=== PATIENT | male | born 1950 | race Caucasian/White ===

== ENCOUNTER 2021-08-13 10:01 | Inpatient (IN) ==
[2021-08-13 10:13] VITALS: BMI 26.2
--- NOTE | 2021-08-13 10:34 | DR.GENAD ---
HPI Time Seen Time Seen by Provider: 08/13/21 10:32 PCP Primary Care Physician: LEANA MAK HPI Comment HPI Comment: cough, congestion, body aches, pains and sob x 2 days as below; worsening; he had rt lung cancer removed on a few years ago Complaint/Symptoms Chief Complaint:: PT. C/O FEVER, GENERALIZED WEAKNESS, CHILLS AND SHORTNESS OF BREATH X 2 DAYS. COVID-19 Coronavirus risk:travel/contact w/high risk person: No Has patient experienced Coronavirus symptoms: Yes Coronavirus symptoms experienced: Fever and Shortness of Breath Source History Provided: Patient Mode of Arrival Mode of Arrival: Ambulatory Timing Onset of Chief Complaint: 08/11/21 PMH PMH Past Medical History: Yes Past Medical History: COPD Past Medical History Comment: NEUROPATHY, LUNG CANCER, SKIN CANCER Past Surgical History: Yes Surgical History: Other Past Surgical History Comment: PART OF RIGHT LUNG REMOVED, NASAL SURGERY DUE TO SKIN CANCER, SKIN GRAFT TO RIGHT SHOULDER Family History History of Family Medical Conditions: No Social History Does patient currently use any type of tobacco product: No Have you used tobacco products in the last 12 months: No Type of Tobacco Use: None Does any household member use tobacco: No Alcohol Use: DAILY Do you use any recreational Drugs:: No Lives With: Spouse Lives Where: Home Travel Risk Coronavirus risk:travel/contact w/high risk person: No Has patient experienced Coronavirus symptoms: Yes Coronavirus symptoms experienced: Fever and Shortness of Breath Infectious screening In the last 2 months have you had wt loss of >10#?: NO Have you had fever, night sweats or hemotysis?: No Have you traveled outside the country in the last 6 months?: No Isolation: Droplet ROS Review of Systems Eyes: No Symptoms Reported ENTM: No Symptoms Reported Cardiovascular: No Symptoms Reported Gastrointestinal/Abdominal: No Symptoms Reported Genitourinary: No Symptoms Reported Neurological: No Symptoms Reported Integumentary: No Symptoms Reported Hematologic/Lymphatic: No Symptoms Reported Endocrine: No Symptoms Reported Psychiatric: No Symptoms Reported PE Vital Signs Vitals: Temperature 97.6 F Pulse Rate [Left Brachial] 70 Pulse Rate 88 Respiratory Rate 17 Blood Pressure [Left Arm] 155/78 Blood Pressure 119/70 O2 Sat by Pulse Oximetry 98 General General Appearance: Other (looks mildly ill) Head Head Exam: Normal Inspection Eyes Eye exam: Normal Appearance ENT ENT Exam: Normal Exam External Ear Exam: Normal External Inspection TM/Canal Exam: Bilateral: Normal Nose Exam: Normal Nose Exam Mouth Exam: Normal Inspection Throat Exam: Normal Inspection Neck Neck Exam: Normal Inspection Chest Chest Inspection: Normal Inspection Respiratory Respiratory Exam: Normal Lung Sounds Bilat Respiratory Exam: Bilateral: Clear to Auscultation Cardiovascular Cardiovascular Exam: Regular Rate and Normal Rhythm Abdominal Exam Abdominal Exam: Normal Inspection, Normal Bowel Sounds and Soft Extremities Extremities Exam: Normal Inspection Back Back Exam: Normal Inspection Neurologic Neurological Exam: Alert and Oriented X3 Psychiatric Psychiatric Exam: Normal Affect and Normal Mood Skin Skin Exam: Warm, Dry, Intact and Normal Color MDM Differential Diagnosis Differential Diagnosis: covid vs pneumonia vs bronchitis vs flu vs PE COURSE Reevaluation 1st: Unchanged Consultation Call Returned: 13:53 (Dr Garcia accepts admission.) ROR Labs Reviewed Laboratory Results Reviewed?: Yes Result Diagrams: 08/13/21 11:19 08/13/21 11:19 Laboratory: WBC 2.6 X10^3/uL (3.6-10.0) L 08/13/21 11:19 RBC 5.39 X10^6/uL (4.7-6.0) 08/13/21 11:19 Hgb 15.9 g/dL (13.5-18.0) 08/13/21 11:19 Hct 46.0 % (42.0-54.0) 08/13/21 11:19 MCV 85.3 fL (80.0-100.0) 08/13/21 11:19 MCH 29.6 pg (27.0-34.0) 08/13/21 11:19 MCHC 34.6 g/dL (33.0-35.0) 08/13/21 11:19 RDW 14.4 % (11.6-16.5) 08/13/21 11:19 Plt Count 121 X10^3/uL (150.0-450.0) L 08/13/21 11:19 MPV 7.8 fL (7.4-11.0) 08/13/21 11:19 Neut % (Auto) 74.7 % (42.0-75.0) 08/13/21 11:19 Lymph % (Auto) 11.0 % (21.0-51.0) L 08/13/21 11:19 Mora % (Auto) 13.5 % (0.0-13.0) H 08/13/21 11:19 Eos % (Auto) 0.2 % (0.9-2.9) L 08/13/21 11:19 Baso % (Auto) 0.6 % (0.2-1.0) 08/13/21 11:19 Neut # (Auto) 2.0 x10^3/uL (2.2-4.8) L 08/13/21 11:19 Lymph # (Auto) 0.3 X10^3/uL (1.3-2.9) L 08/13/21 11:19 [place]a # (Auto) 0.4 x10^3/uL (0.3-0.8) 08/13/21 11:19 Eos # (Auto) 0.0 x10^3/uL (0.0-0.2) 08/13/21 11:19 Baso # (Auto) 0.0 X10^3/uL (0.0-0.1) 08/13/21 11:19 Absolute Nucleated RBC 0.2 /100WBC 08/13/21 11:19 PT 14.3 SECONDS (11.8-14.3) 08/13/21 11:10 INR Target Range - 08/13/21 11:10 INR 1.17 (0.8-1.3) 08/13/21 11:10 APTT 34.0 SECONDS (22.9-36.5) 08/13/21 11:10 PTT Comment - 08/13/21 11:10 D-Dimer 5.89 ug/ml (0.0-0.57) H* 08/13/21 11:19 Sample Site Rr 08/13/21 11:10 ABG pH 7.430 (7.35-7.45) 08/13/21 11:10 ABG pCO2 38.0 mmHg (35.0-45.0) 08/13/21 11:10 ABG pO2 72.0 mmHg (80.0-100.0) L 08/13/21 11:10 ABG HCO3 25.2 mmol/L (22-26) 08/13/21 11:10 ABG O2 Saturation 95.0 % (90-100) 08/13/21 11:10 ABG Base Excess 1.0 mmol/L (-2.0-2.0) 08/13/21 11:10 Ernie Test Pos 08/13/21 11:10 A-a Gradient 30.0 mmHg 08/13/21 11:10 FiO2 21.0 08/13/21 11:10 Blood Gas Comments Pt camron well cdn 08/13/21 11:10 Sodium 136 mmol/L (136-145) 08/13/21 11:19 Corrected Sodium TNP 08/13/21 11:19 Potassium 3.6 mmol/L (3.5-5.1) 08/13/21 11:19 Chloride 100 mmol/L (98-107) 08/13/21 11:19 Carbon Dioxide 25.1 mmol/L (21-32) 08/13/21 11:19 BUN 14 mg/dL (7-18) 08/13/21 11:19 Creatinine 1.13 mg/dL (0.70-1.30) 08/13/21 11:19 Est GFR (MDRD) Af Amer > 60 (>60) 08/13/21 11:19 Est GFR (MDRD) Non-Af > 60 (>60) 08/13/21 11:19 Glucose 107 mg/dL (65-99) H 08/13/21 11:19 Calcium 9.0 mg/dL (8.5-10.1) 08/13/21 11:19 Corrected Calcium TNP 08/13/21 11:19 Total Bilirubin 0.70 mg/dL (0.2-1.0) 08/13/21 11:19 AST 67 Units/L (15-37) H 08/13/21 11:19 ALT 48 Units/L (12-78) 08/13/21 11:19 Alkaline Phosphatase 49 Units/L (46-116) 08/13/21 11:19 Total Protein 7.5 g/dL (6.4-8.2) 08/13/21 11:19 Albumin 3.5 g/dL (3.4-5.0) 08/13/21 11:19 Globulin 4.0 g/dL (2.5-4.5) 08/13/21 11:19 Albumin/Globulin Ratio 0.9 Ratio (1.1-2.1) L 08/13/21 11:19 Influenza Type A Ag Negative-presumptive (NEGATIVE) 08/13/21 10:31 Influenza Type B Ag Negative-presumptive (NEGATIVE) 08/13/21 10:31 SARS CoV-2 RNA Rapid AMOS Negative (NEGATIVE) 08/13/21 10:31 XRAY XRAY Interpreted by: Radiologist X-ray Results: cta: Focal filling defect at the level of the segmental right lower lobe medial pulmonary artery, suspicious for acute PE, at the level of the surgical changes and partial lobectomy, the distal vessel appears occluded. Patchy bibasal atelectasis. Mild mediastinal adenopathy. Opioid Opioid Risk Tool Age (Severiano box if 16-45): No History of Preadolescent Sexual Abuse: No Total: 0 Total Score Risk Category: Low Risk Copyright: [facility] predicting aberrant behaviors Diagnosis Discharge Problem: S/P lobectomy of lung, History of lung cancer Pulmonary embolism Qualifiers: Pulmonary embolism type: unspecified Chronicity: acute Acute cor pulmonale presence: unspecified Qualified Code(s): I26.99 - Other pulmonary embolism without acute cor pulmonale Leukopenia Qualifiers: Leukopenia type: lymphocytopenia Qualified Code(s): D72.810 - Lymphocytopenia Instructions Forms: Precautions for COVID19 [facility] Social Distancing
[2021-08-13 11:17] LABS: ABG ALLEN TEST POS; ABG HCO3 25.2 mmol/L (22-26)
[2021-08-13 11:25] LABS: BASOPHILS % (AUTO) 0.6 % (0.2-1.0); EOSINOPHILS % (AUTO) 0.2 % (0.9-2.9); HEMOGLOBIN 15.9 g/dL (13.5-18.0); LYMPHOCYTES # (AUTO) 0.3 X10^3/uL (1.3-2.9); MEAN CORPUSCULAR HEMOGLOBIN 29.6 pg (27.0-34.0); MEAN CORPUSCULAR HGB CONC 34.6 g/dL (33.0-35.0); MEAN CORPUSCULAR VOLUME 85.3 fL (80.0-100.0); MEAN PLATELET VOLUME 7.8 fL (7.4-11.0); MONOCYTES # (AUTO) 0.4 x10^3/uL (0.3-0.8); MONOCYTES % (AUTO) 13.5 % (0.0-13.0); NEUTROPHILS % (AUTO) 74.7 % (42.0-75.0); PLATELET COUNT 121 X10^3/uL (150.0-450.0); RED BLOOD COUNT 5.39 X10^6/uL (4.7-6.0); RED CELL DISTRIBUTION WIDTH 14.4 % (11.6-16.5); WHITE BLOOD COUNT 2.6 X10^3/uL (3.6-10.0)
[2021-08-13 11:37] LABS: ALANINE AMINOTRANSFERASE 48 Units/L (12-78); ALBUMIN 3.5 g/dL (3.4-5.0); ALKALINE PHOSPHATASE 49 Units/L (46-116); ASPARTATE AMINO TRANSFERASE 67 Units/L (15-37); BLOOD UREA NITROGEN 14 mg/dL (7-18); CARBON DIOXIDE 25.1 mmol/L (21-32); CHLORIDE 100 mmol/L (98-107); CREATININE 1.13 mg/dL (0.70-1.30); SODIUM 136 mmol/L (136-145); TOTAL PROTEIN 7.5 g/dL (6.4-8.2); eGFR NON BLACK RACES > 60 (>60)
[2021-08-13] MEDS ORDERED: NS 100 ML IV 100 ML ONE (12:22)
--- NOTE | 2021-08-13 12:56 | RAD ---
HISTORYCough SOB lung CA right lobectomySTUDYAP chestCOMPARISONNoneFINDINGSThe heart is not enlarged. There is moderate dilatation of thoracic aorta. Nonspecific interstitial increase is noted in the left lower lung without evidence for consolidation, mass, hilar enlargement or pleural effusion.IMPRESSIONMild nonspecific interstitial prominence in the left base may represent chronic fibrosis or a more acute inflammatory process. There is no prior exam currently available for direct comparison.Electronically signed by: LUCA TORRES (Aug 13, 2021 12:54:23)
--- NOTE | 2021-08-13 13:22 | CT ---
HISTORYELEVATED D DIMER history of lung carcinoma and right lobectomySTUDYCTA CHESTCOMPARISONNone availableTECHNIQUEAxial images through the chest was performed after the administration of contrast. 3D MIPS images were performed. CT scan was performed following ALARA (As low as Reasonably Achievable).Coronal and Sagittal reformatted images were performed.FINDINGSThe thyroid gland is unremarkable. there is no evidence of axillary adenopathy. The ascending aorta measures 3.6 centimeters,there is no pleural or pericardial effusion. No adrenal masses, the spleen is no enlarged, there is no gallstones t,here is diffuse fatty liver,the pancreas is unremarkable.There is a small irregular filling defect in the segmental right lower lobe medial segment vessel adjacent to an area of surgical clips,the distal vessel is occluded at the level, suspicious for acute PThere is a partial right lower lobe lobectomy at the level.No other filling defects are seen. No axillary adenopathy. There is a pretracheal lymph node measuring in short axis 1.3 centimeters, there is also pretracheal lymph nodes measuring 1 centimeter.Lung windows there is no evidence of focal pneumonia. There is mild emphysema in the periphery, there is atelectasis in the bases, status post partial lobectomy in the right lower lobe. No focal nodulesBone windows no evidence of aggressive bone lesions. No acute fracturesIMPRESSIONFocal filling defect at the level of the segmental right lower lobe medial pulmonary artery, suspicious for acute PE, at the level of the surgical changes and partial lobectomy, the distal vessel appears occludedPatchy bibasal atelectasis. Mild mediastinal adenopathy.Electronically signed by: Natalie King (Aug 13, 2021 13:20:05)
[2021-08-13] MEDS ORDERED: HEPARIN SODIUM INJ 5000 UNITS ONE (14:07)
[2021-08-13] MEDS ORDERED: HEPARIN SODIUM IN D5W 25,000 UNITS/500 ML BAG ONE (14:07)
[2021-08-13] MEDS: HEPARIN SODIUM IN D5W 25,000 UNITS/500 ML BAG IV PRN (14:32)
[2021-08-13] MEDS: NS 1,000 ML IV 1,000 ML IV SCH (16:26)
[2021-08-13] MEDS: ROCEPHIN VIAL 1 GRAM 1 G in NS 100 ML IV + SPIKE MINIBAG* 100 ML IV SCH (16:26)
[2021-08-13] MEDS ORDERED: PROVENTIL NEB TX 0.083% 2.5MG/ 3ML NEB PRN (17:21)
[2021-08-13] MEDS: TYLENOL 325 MG TAB PO PRN (23:35)
[2021-08-14] MEDS: NS 1,000 ML IV 1,000 ML IV SCH ×2 (05:48→18:42)
[2021-08-14 05:53] LABS: BASOPHILS % (AUTO) 1.1 % (0.2-1.0); HEMATOCRIT 43.6 % (42.0-54.0); HEMOGLOBIN 14.7 g/dL (13.5-18.0); LYMPHOCYTES # (AUTO) 0.4 X10^3/uL (1.3-2.9); LYMPHOCYTES % (AUTO) 17.4 % (21.0-51.0); MEAN CORPUSCULAR HEMOGLOBIN 29.3 pg (27.0-34.0); MEAN CORPUSCULAR HGB CONC 33.8 g/dL (33.0-35.0); MEAN CORPUSCULAR VOLUME 86.6 fL (80.0-100.0); MEAN PLATELET VOLUME 8.4 fL (7.4-11.0); MONOCYTES # (AUTO) 0.3 x10^3/uL (0.3-0.8); MONOCYTES % (AUTO) 16.2 % (0.0-13.0); NEUTROPHILS # (AUTO) 1.3 x10^3/uL (2.2-4.8); NEUTROPHILS % (AUTO) 64.3 % (42.0-75.0); PLATELET COUNT 107 X10^3/uL (150.0-450.0); RED BLOOD COUNT 5.03 X10^6/uL (4.7-6.0); RED CELL DISTRIBUTION WIDTH 14.6 % (11.6-16.5); WHITE BLOOD COUNT 2.1 X10^3/uL (3.6-10.0)
[2021-08-14 06:03] LABS: ALANINE AMINOTRANSFERASE 42 Units/L (12-78); ALBUMIN 2.8 g/dL (3.4-5.0); ALKALINE PHOSPHATASE 53 Units/L (46-116); ASPARTATE AMINO TRANSFERASE 59 Units/L (15-37); BLOOD UREA NITROGEN 14 mg/dL (7-18); CALCIUM 8.3 mg/dL (8.5-10.1); CHLORIDE 103 mmol/L (98-107); COR CA(FOR HYPOALB) 9.3 mg/dL (8.5-10.1); COR NA(FOR HYPERGLY) 139 mmol/L (136-145); SODIUM 138 mmol/L (136-145); TOTAL PROTEIN 6.4 g/dL (6.4-8.2); eGFR NON BLACK RACES > 60 (>60)
[2021-08-14] MEDS ORDERED: MYLICON TAB 80 MG CHEW PO ONE (06:46)
--- NOTE | 2021-08-14 07:01 | RAD ---
HISTORYLung CA, lobectomy, SOBSTUDYPortable AP [id number]/2021FINDINGSThere is noted interval increase in linear/subsegmental atelectasis left lower lung. No airspace consolidation, pleural fluid or pneumothorax seen. Heart size is similar.IMPRESSIONNo significant change except for increasing linear atelectasis in the left lower lung. Focal consolidation to suggest pneumonia is not identified.Electronically signed by: LUCA TORRES (Aug 14, 2021 06:59:45)
[2021-08-14 07:30] LABS: BAND NEUTROPHILS % 8 % (0-10); BASOPHILS % (MANUAL) 2 % (0-1)
[2021-08-14 07:31] LABS: PLATELET MORPHOLOGY COMMENT NORMAL (NORMAL)
[2021-08-14] MEDS ORDERED: POTASSIUM CHLORIDE LIQ 20 MEQ UDC PO PRN (07:36)
[2021-08-14] MEDS ORDERED: K-RIDER 10 MEQ/NS 100 ML 10 MEQ/100 ML BAG IV PRN (07:36)
[2021-08-14] MEDS ORDERED: K-DUR TAB 20 MEQ PO PRN (07:36)
[2021-08-14] MEDS ORDERED: POTASSIUM CHL 40 MEQ/NS 0.45% 500 ML IV PRN (07:36)
[2021-08-14] MEDS ORDERED: KLOR-CON PO PRN (07:36)
[2021-08-14] MEDS ORDERED: MICRO K EXTEN CAP 10 MEQ PO PRN (07:36)
[2021-08-14] MEDS ORDERED: POTASSIUM CHL 60 MEQ/NS 0.45% 500 ML IV PRN (07:36)
[2021-08-14] MEDS ORDERED: MAGNESIUM SULFATE 1 GRAM/100 mL PREMIX 1 G/100 ML BAG IV PRN (07:36)
--- NOTE | 2021-08-14 07:53 | DR.H&P ---
H&P - History & Physical for Day of: H&P Date: 08/13/21 - Chief Complaint Chief Complaint: SOB, COUGH, CONGESTION, BODY ACHES, FEVER - History of Present Illness History of Present Illness: IS A 70 YEAR OLD PATIENT OF [facility]. HE PRESENTED TO THE ER WITH COMPLAINTS OF COUGH, CONGESTION, BODY ACHES, AND SHORTNESS OF BREATH X 2 DAYS. HE REPORTS THAT SYMPOTMS HAVE PROGRESSIVELY WORSENED OVER THE PAST TWO DAYS. HE HAS A HX OF RIGHT LUNG CANCER, WHICH WAS REMOVED A FEW YEARS AGO. PMH INCLUDES COPD, NEUROPATHY, LUNG CA, SKIN CA, PARTIAL LOBECTOMY, SKIN GRAFT TO RIGHT SHOULDER, NASAL SURGERY. EXAMINATION REVEALED DIMINISHED LUNG SOUNDS THROUGHOUT. ON ARRIVAL, VITALS WERE: 97.6-88-20-97%-119/70. LABS WERE OBTAINED. ABNORMAL LAB VALUES INCLUDE THE FOLLOWING: WBC 2.6, PLT COUNT 121, D-DIMER 5.89, GLUCOSE 107, AST 67. COVID AND INFLUENZA NEGATIVE. BLOOD CULTURES WERE SET UP. A CHEST XRAY WAS OBTAINED AND REVEALED: Mild nonspecific interstitial prominence in the left base may represent chronic fibrosis or a more acute inflammatory process. There is no prior exam currently available for direct comparison. A CHEST CTA WAS OBTAINED AND REVEALED: Focal filling defect at the level of the segmental right lower lobe medial pulmonary artery, suspicious for acute PE, at the level of the surgical changes and partial lobectomy, the distal vessel appears occluded Patchy bibasal atelectasis. Mild mediastinal adenopathy. IN THE ER, HE WAS STARTED ON A HEPARIN DRIP. HE WAS ADMITTED FOR FURTHER EVALUATION AND TREATMENT OF RLL PULMONARY EMBOLISM, HYPOXIA, AND COUGH. HE WAS STARTED ON NORMAL SALINE AT 80 ML/HR, HEPARIN DRIP, ROCEPHIN 1G IV DAILY, ALBUTEROL NEB TX, AND THE POTASSIUM AND MAGNESIUM PROTOCOLS. OTHERWISE, WE PLAN TO FOLLOW UP WITH AM LABS AND CHEST XRAY AND CONTINUE TO MONITOR. TIME SPENT ON CLINICAL ASSESSMENT, REVIEWING LABS AND IMAGING, DECISION MAKING, AND DOCUMENTATION GREATER THAN 75 MINUTES. - Past Medical History Past Medical History: COPD Additional Medical History: NEUROPATHY - Past Surgical History Surgical History: Other Additional Surgical History: PARTIAL RIGHT LOBECTOMY, NASAL SURGERY, SKIN GRAFT RIGHT SHOULDER - Family History Family Medical History: Diabetes Mellitus, Cancer, [place], Hypertension - Social History Does patient currently use any type of tobacco product: Yes Have you used tobacco products in the last 12 months: Yes Type of Tobacco Use: Smokeless Does any household member use tobacco: No Alcohol Use: DAILY Drug Use: None - Medications Home Medications: erythromycin base Allergy (Verified 08/13/21 10:13) oxycodone [From Percocet] Allergy (Verified 08/13/21 10:13) Penicillins Allergy (Verified 08/13/21 10:13) terazosin Allergy (Verified 08/13/21 10:13) CONTINUE taking the following medications aspirin 325 mg PO DAILY 08/13/21 [History] cetirizine 10 mg PO DAILY 08/13/21 [History] cyanocobalamin (vitamin B-12) 100 mcg PO DAILY 08/13/21 [History] folic acid 2 mg PO DAILY 08/13/21 [History] gabapentin [Neurontin] 300 mg PO DAILY 08/13/21 [History] montelukast 10 mg PO DAILY 08/13/21 [History] pantoprazole 40 mg PO DAILY 08/13/21 [History] pyridoxine [id number] 3 natty PO DAILY 08/13/21 [History] thiamine HCl (vitamin B1) 100 mg PO DAILY 08/13/21 [History] - Review of Systems Constitutional: Fever, Weakness, Malaise Eyes: No Symptoms Reported ENT: No Symptoms Reported Respiratory: No Symptoms Reported, Cough, Shortness of Breath, SOB with Excertion Cardiovascular: No Symptoms Reported Gastrointestinal: No Symptoms Reported Genitourinary: No Symptoms Reported Musculoskeletal: No Symptoms Reported Skin: No Symptoms Reported Neurological: Weakness - Physical Exam Vital Signs: Temperature 98.0 F Pulse Rate [Left Brachial] 72 Pulse Rate 66 Respiratory Rate 10 Blood Pressure [Left Arm] 158/82 Blood Pressure 130/66 O2 Sat by Pulse Oximetry 96 Oriented: Normal Eyes: Normal Ear: Normal Nose: Normal Throat: Normal Respiratory: Diminished Throughout Cardiovascular: Normal : Normal Auscultation: Bowel Sounds: Normal Palpation: Normal Tenderness: Normal Skin: Normal Musculoskeletal: Normal Psychiatric: Normal Mood Description: Calm Affect: Normal Speech Pattern: Clear - Assessment/Plan (1) Pulmonary embolism Qualifiers: Pulmonary embolism type: unspecified Chronicity: acute Acute cor pulmonale presence: unspecified Qualified Code(s): I26.99 - Other pulmonary embolism without acute cor pulmonale Status: Acute Plan: ADMIT, SUPPLEMENTAL OXYGEN, NORMAL SALINE AT 80 ML/HR, HEPARIN DRIP, ROCEPHIN 1G IV DAILY, ALBUTEROL NEB TX, AND THE POTASSIUM AND MAGNESIUM PROTOCOLS. (2) Bronchopneumonia Status: Acute (3) Hypoxia Status: Acute (4) Leukopenia Qualifiers: Leukopenia type: lymphocytopenia Qualified Code(s): D72.810 - Ly mphocytopenia Status: Acute - Allergies Allergies/Adverse Reactions: Allergies Allergy/AdvReac Type Severity Reaction Status Date / Time erythromycin base Allergy Verified 08/13/21 10:13 oxycodone [From Percocet] Allergy Verified 08/13/21 10:13 Penicillins Allergy Verified 08/13/21 10:13 terazosin Allergy Verified 08/13/21 10:13
[2021-08-14] MEDS: TYLENOL 325 MG TAB PO PRN ×2 (09:33→19:27)
[2021-08-14] MEDS: ROCEPHIN VIAL 1 GRAM 1 G in NS 100 ML IV + SPIKE MINIBAG* 100 ML IV SCH (09:44)
[2021-08-14] MEDS: HEPARIN SODIUM IN D5W 25,000 UNITS/500 ML BAG IV PRN (09:44)
[2021-08-14] MEDS ORDERED: DEMEROL INJ ONE (11:50)
[2021-08-14] MEDS: DEMEROL INJ IVP PRN ×2 (11:51→18:42)
[2021-08-15] MEDS: DEMEROL INJ IVP PRN ×4 (00:34→20:06)
[2021-08-15] MEDS: TYLENOL 325 MG TAB PO PRN ×4 (05:00→22:10)
[2021-08-15 05:34] LABS: BASOPHILS % (AUTO) 1.4 % (0.2-1.0); EOSINOPHILS % (AUTO) 0.6 % (0.9-2.9); LYMPHOCYTES # (AUTO) 0.5 X10^3/uL (1.3-2.9); LYMPHOCYTES % (AUTO) 22.2 % (21.0-51.0); MEAN CORPUSCULAR HEMOGLOBIN 29.2 pg (27.0-34.0); MEAN CORPUSCULAR VOLUME 85.7 fL (80.0-100.0); MEAN PLATELET VOLUME 8.5 fL (7.4-11.0); MONOCYTES # (AUTO) 0.3 x10^3/uL (0.3-0.8); NEUTROPHILS # (AUTO) 1.4 x10^3/uL (2.2-4.8); NEUTROPHILS % (AUTO) 63.8 % (42.0-75.0); PLATELET COUNT 98 X10^3/uL (150.0-450.0); RED BLOOD COUNT 4.79 X10^6/uL (4.7-6.0); RED CELL DISTRIBUTION WIDTH 14.2 % (11.6-16.5); WHITE BLOOD COUNT 2.2 X10^3/uL (3.6-10.0)
[2021-08-15 05:44] LABS: ALANINE AMINOTRANSFERASE 43 Units/L (12-78); ALBUMIN 2.8 g/dL (3.4-5.0); ALKALINE PHOSPHATASE 46 Units/L (46-116); ASPARTATE AMINO TRANSFERASE 57 Units/L (15-37); BLOOD UREA NITROGEN 9 mg/dL (7-18); CALCIUM 8.3 mg/dL (8.5-10.1); CARBON DIOXIDE 27.6 mmol/L (21-32); CHLORIDE 102 mmol/L (98-107); COR CA(FOR HYPOALB) 9.3 mg/dL (8.5-10.1); CREATININE 0.98 mg/dL (0.70-1.30); SODIUM 137 mmol/L (136-145); TOTAL PROTEIN 6.3 g/dL (6.4-8.2); eGFR NON BLACK RACES > 60 (>60)
[2021-08-15] MEDS: NS 1,000 ML IV 1,000 ML IV SCH ×2 (06:02→20:06)
[2021-08-15 06:08] LABS: BAND NEUTROPHILS % 10 % (0-10); PLATELET MORPHOLOGY COMMENT NORMAL (NORMAL)
--- NOTE | 2021-08-15 07:15 | RAD ---
HISTORYShortness of breath, pulmonary embolusSTUDYChest AP [id number]/21/2021FINDINGSHeart size is normal. Abbie are normal. Aorta is calcified. There is some subsegmental atelectasis in the left lung base unchanged. No definite acute alveolar infiltrates or pleural effusions are identified. Bony thorax is unremarkable.IMPRESSIONNo definite acute infiltratesSubsegmental atelectasis left lung base unchangedElectronically signed by: TULIO MANDEL (Aug 15, 2021 07:13:21)
[2021-08-15] MEDS: FORTAZ or TAZICEF VIAL INJ 1 G in NS 100 ML IV + SPIKE MINIBAG* 100 ML IV SCH ×3 (09:35→21:13)
--- NOTE | 2021-08-15 09:55 | PCM.PROG ---
Progress Note - Progress Note for Day of Date of Exam: 08/15/21 - Subjective Subjective: WAS ADMITTED FOR TREATMENT OF PULMONARY EMBOLISM, PNEUMONIA, HYPOXIA, AND LEUKOPENIA. TODAY, HE IS ALERT AND ORIENTED, SITTING UP IN BED ON MORNING ROUNDS. HE CONTINUES WITH COMPLAINTS OF SHORTNESS OF BREATH AND COUGH. HE ALSO REPORTS GENERALIZED WEAKNESS. STAFF REPORTS THAT HE DID HAVE TEMP OF 102.1 AT APPROXIMATELY 1900 LAST NIGHT. ON EXAMINATION, HEART IS REGULAR IN RATE AND RHYTHM. BILATERAL LUNGS ARE NOTED WITH DIMINISHED LUNG SOUNDS THROUGHOUT. ABDOMEN IS ROUND, SOFT, AND NON-TENDER WITH NORMAL BOWEL SOUNDS NOTED IN ALL QUADRANTS. HIS VITALS THIS MORNING ARE: 99.3-86-15-96%-138/65. LABS WERE OBTAINED. WBC 2.2, HGB 14/HCT 41, CALCIUM 8.3, AST 57, TOTAL PROTEIN 6.3, ALBUMIN 2.8. BLOOD CULTURES ARE PENDING. A CHEST XRAY WAS OBTAINED AND REVEALED: Heart size is normal. Abbie are normal. Aorta is calcified. There is some subsegmental atelectasis in the left lung base unchanged. No definite acute alveolar infiltrates or pleural effusions are identified. Bony thorax is u nremarkable. HE IS CURRENTLY RECEIVING: NORMAL SALINE AT 80 ML/HR, HEPARIN DRIP, ROCEPHIN 1G IV DAILY, ALBUTEROL NEB TX, AND THE POTASSIUM AND MAGNESIUM PROTOCOLS. TODAY, WE WILL DISCONTINUE THE ROCEPHIN AND ADD FORTAZ AND LEVAQUIN. WE WILL TRANSITION FROM HEPARIN TO ELIQUIS 10MG PO BID. OTHERWISE, WE WILL CONTINUE WITH CURRENT PLAN OF CARE. WE PLAN TO FOLLOW UP WITH AM LABS AND CONTINUE TO MONITOR. TIME SPENT ON CLINICAL ASSESSMENT, REVIEWING LABS AND IMAGING, DECISION MAKING, AND DOCUMENTATION GREATER THAN 45 MINUTES. - Past Medical Family Social History Past Med/Fam/Surg Hx: No changes since H&P Allergies: Allergies erythromycin base Allergy (Verified 08/13/21 10:13) oxycodone [From Percocet] Allergy (Verified 08/13/21 10:13) Penicillins Allergy (Verified 08/13/21 10:13) terazosin Allergy (Verified 08/13/21 10:13) - Review of Systems ROS: No change since H&P - Vital Signs and I&O's Vital Signs: Temperature 99.3 F Pulse Rate [Left Brachial] 72 Pulse Rate 86 Respiratory Rate 20 Blood Pressure [Left Arm] 158/82 Blood Pressure 138/65 O2 Sat by Pulse Oximetry 96 Intake and Output: Intake & Output 08/12/21 08/13/21 08/14/21 08/15/21 11:59 11:59 11:59 11:59 Intake Total 2085 / 2085 3458 / 3458 Output Total 200 / 200 1500 / 1500 Balance 1885 / 1885 - Physical Exam Oriented: Normal Eyes: Normal Ear: Normal Nose: Normal Throat: Normal Respiratory: Generalized, Diminished Cardiovascular: Normal : Normal Auscultation: Bowel Sounds: Normal Palpation: Normal Tenderness: Normal Skin: Normal Musculoskeletal: Normal Psychiatric: Normal Mood Description: Calm Affect: Normal Speech Pattern: Clear, Appropriate - Laboratory and Diagnostics Result Diagrams: 08/15/21 05:08 08/15/21 05:08 Labs: 08/13/21 23:32 Blood Blood Culture - Preliminary 08/13/21 23:28 Blood Blood Culture - Preliminary 08/13/21 15:23 Blood Blood Culture - Preliminary 08/13/21 15:18 Blood Blood Culture - Preliminary Laboratory WBC 2.2 X10^3/uL (3.6-10.0) L 08/15/21 05:08 RBC 4.79 X10^6/uL (4.7-6.0) 08/15/21 05:08 Hgb 14.0 g/dL (13.5-18.0) 08/15/21 05:08 Hct 41.0 % (42.0-54.0) L 08/15/21 05:08 MCV 85.7 fL (80.0-100.0) 08/15/21 05:08 MCH 29.2 pg (27.0-34.0) 08/15/21 05:08 MCHC 34.0 g/dL (33.0-35.0) 08/15/21 05:08 RDW 14.2 % (11.6-16.5) 08/15/21 05:08 Plt Count 98 X10^3/uL (150.0-450.0) L 08/15/21 05:08 Plt Count Comment Decreased (ADEQUATE) 08/15/21 05:08 MPV 8.5 fL (7.4-11.0) 08/15/21 05:08 Neut % (Auto) 63.8 % (42.0-75.0) 08/15/21 05:08 Lymph % (Auto) 22.2 % (21.0-51.0) 08/15/21 05:08 [place] % (Auto) 12.0 % (0.0-13.0) 08/15/21 05:08 Eos % (Auto) 0.6 % (0.9-2.9) L 08/15/21 05:08 Baso % (Auto) 1.4 % (0.2-1.0) H 08/15/21 05:08 Neut # (Auto) 1.4 x10^3/uL (2.2-4.8) L 08/15/21 05:08 Lymph # (Auto) 0.5 X10^3/uL (1.3-2.9) L 08/15/21 05:08 [place] # (Auto) 0.3 x10^3/uL (0.3-0.8) 08/15/21 05:08 Eos # (Auto) 0.0 x10^3/uL (0.0-0.2) 08/15/21 05:08 Baso # (Auto) 0.0 X10^3/uL (0.0-0.1) 08/15/21 05:08 Absolute Nucleated RBC 0.2 /100WBC 08/15/21 05:08 Total Counted 50 08/15/21 05:08 Neutrophils % (Manual) 52 % (39-76) 08/15/21 05:08 Band Neutrophils % 10 % (0-10) 08/15/21 05:08 Lymphocytes % (Manual) 28 % (13-43) 08/15/21 05:08 Monocytes % (Manual) 10 % (4-9) H 08/15/21 05:08 Basophils % (Manual) 2 % (0-1) H 08/14/21 05:27 Plt Morphology Comment Normal (NORMAL) 08/15/21 05:08 RBC Morphology Normal (NORMAL) 08/15/21 05:08 PT 14.3 SECONDS (11.8-14.3) 08/13/21 11:10 INR Target Range - 08/13/21 11:10 INR 1.17 (0.8-1.3) 08/13/21 11:10 APTT 89.4 SECONDS (22.9-36.5) H 08/15/21 05:08 PTT Comment - 08/15/21 05:08 D-Dimer 5.89 ug/ml (0.0-0.57) H* 08/13/21 11:19 Sample Site Rr 08/13/21 11:10 ABG pH 7.430 (7.35-7.45) 08/13/21 11:10 ABG pCO2 38.0 mmHg (35.0-45.0) 08/13/21 11:10 ABG pO2 72.0 mmHg (80.0-100.0) L 08/13/21 11:10 ABG HCO3 25.2 mmol/L (22-26) 08/13/21 11:10 ABG O2 Saturation 95.0 % (90-100) 08/13/21 11:10 ABG Base Excess 1.0 mmol/L (-2.0-2.0) 08/13/21 11:10 Ernie Test Pos 08/13/21 11:10 A-a Gradient 30.0 mmHg 08/13/21 11:10 FiO2 21.0 08/13/21 11:10 Blood Gas Comments Pt camron well cdn 08/13/21 11:10 Sodium 137 mmol/L (136-145) 08/15/21 05:08 Corrected Sodium TNP 08/15/21 05:08 Potassium 4.1 mmol/L (3.5-5.1) 08/15/21 05:08 Chloride 102 mmol/L (98-107) 08/15/21 05:08 Carbon Dioxide 27.6 mmol/L (21-32) 08/15/21 05:08 BUN 9 mg/dL (7-18) 08/15/21 05:08 Creatinine 0.98 mg/dL (0.70-1.30) 08/15/21 05:08 Est GFR (MDRD) Af Amer > 60 (>60) 08/15/21 05:08 Est GFR (MDRD) Non-Af > 60 (>60) 08/15/21 05:08 Glucose 95 mg/dL (65-99) 08/15/21 05:08 Calcium 8.3 mg/dL (8.5-10.1) L 08/15/21 05:08 Corrected Calcium 9.3 mg/dL (8.5-10.1) 08/15/21 05:08 Magnesium 2.3 mg/dL (1.7-2.9) 08/14/21 05:27 Total Bilirubin 0.40 mg/dL (0.2-1.0) 08/15/21 05:08 AST 57 Units/L (15-37) H 08/15/21 05:08 ALT 43 Units/L (12-78) 08/15/21 05:08 Alkaline Phosphatase 46 Units/L (46-116) 08/15/21 05:08 Total Protein 6.3 g/dL (6.4-8.2) L 08/15/21 05:08 Albumin 2.8 g/dL (3.4-5.0) L 08/15/21 05:08 Globulin 3.5 g/dL (2.5-4.5) 08/15/21 05:08 Albumin/Globulin Ratio 0.8 Ratio (1.1-2.1) L 08/15/21 05:08 Influenza Type A Ag Negative-presumptive (NEGATIVE) 08/13/21 10:31 Influenza Type B Ag Negative-presumptive (NEGATIVE) 08/13/21 10:31 SARS CoV-2 RNA Rapid AMOS Negative (NEGATIVE) 08/13/21 10:31 - Plan (1) Pulmonary embolism Status: Acute Qualifiers: Pulmonary embolism type: unspecified Chronicity: acute Acute cor pulmonale presence: unspecified Qualified Code(s): I26.99 - Other pulmonary embolism without acute cor pulmonale Plan: ADMIT, SUPPLEMENTAL OXYGEN, NORMAL SALINE AT 80 ML/HR, ELIQUIS 10MG PO BID, FORTAZ 1G IV Q8H, LEVAQUIN 500MG IV DAILY, ALBUTEROL NEB TX, AND THE POTASSIUM AND MAGNESIUM PROTOCOLS. (2) Bronchopneumonia Status: Acute (3) Hypoxia Status: Acute (4) Leukopenia Status: Acute Qualifiers: Leukopenia type: lymphocytopenia Qualified Code(s): D72.810 - Lymphocytopenia
[2021-08-15] MEDS: ELIQUIS PO SCH ×2 (10:16→20:06)
[2021-08-15] MEDS: LEVAQUIN PREMIX IV 500 MG 500 MG/100 ML BAG IV SCH (10:17)
[2021-08-15] MEDS: ROCEPHIN VIAL 1 GRAM 1 G in NS 100 ML IV + SPIKE MINIBAG* 100 ML IV SCH (19:04)
[2021-08-15] MEDS: COLACE CAP 100 MG PO SCH (21:13)
[2021-08-16] MEDS: NS 1,000 ML IV 1,000 ML IV SCH ×3 (00:57→21:06)
[2021-08-16] MEDS: FORTAZ or TAZICEF VIAL INJ 1 G in NS 100 ML IV + SPIKE MINIBAG* 100 ML IV SCH ×3 (05:11→21:06)
--- NOTE | 2021-08-16 05:27 | RAD ---
PROCEDURE: Chest X-ray 1 View .HISTORY: Dyspnea.TECHNIQUE: AP view .COMPARISON: 08/15/2021.TECHNICAL QUALITY: Satisfactory .FINDINGS:Normal size heart .Mediastinum and hilar regions show no masses or lymphadenopathy. Tortuous aorta.Normal central vascularity .No pulmonary consolidation, masses, pleural fluid, or pneumothorax. Continued discoid atelectasis left base.No acute bony abnormality .IMPRESSION:Unchanged chest x-ray.Electronically signed by: Rao León (Aug 16, 2021 05:25:38)
[2021-08-16 05:28] LABS: BASOPHILS % (AUTO) 0.6 % (0.2-1.0); EOSINOPHILS % (AUTO) 0.1 % (0.9-2.9); HEMATOCRIT 41.5 % (42.0-54.0); HEMOGLOBIN 14.1 g/dL (13.5-18.0); LYMPHOCYTES # (AUTO) 0.7 X10^3/uL (1.3-2.9); LYMPHOCYTES % (AUTO) 19.8 % (21.0-51.0); MEAN CORPUSCULAR HGB CONC 34.1 g/dL (33.0-35.0); MEAN CORPUSCULAR VOLUME 85.1 fL (80.0-100.0); MEAN PLATELET VOLUME 8.2 fL (7.4-11.0); MONOCYTES # (AUTO) 0.4 x10^3/uL (0.3-0.8); MONOCYTES % (AUTO) 10.3 % (0.0-13.0); NEUTROPHILS # (AUTO) 2.5 x10^3/uL (2.2-4.8); NEUTROPHILS % (AUTO) 69.2 % (42.0-75.0); PLATELET COUNT 102 X10^3/uL (150.0-450.0); RED BLOOD COUNT 4.87 X10^6/uL (4.7-6.0); WHITE BLOOD COUNT 3.6 X10^3/uL (3.6-10.0)
[2021-08-16 05:42] LABS: ALANINE AMINOTRANSFERASE 52 Units/L (12-78); ALBUMIN 2.8 g/dL (3.4-5.0); ALKALINE PHOSPHATASE 47 Units/L (46-116); ASPARTATE AMINO TRANSFERASE 77 Units/L (15-37); BLOOD UREA NITROGEN 8 mg/dL (7-18); CALCIUM 8.4 mg/dL (8.5-10.1); CARBON DIOXIDE 25.8 mmol/L (21-32); CHLORIDE 100 mmol/L (98-107); COR CA(FOR HYPOALB) 9.4 mg/dL (8.5-10.1); CREATININE 0.94 mg/dL (0.70-1.30); SODIUM 135 mmol/L (136-145); TOTAL PROTEIN 6.3 g/dL (6.4-8.2); eGFR NON BLACK RACES > 60 (>60)
[2021-08-16 06:21] LABS: BAND NEUTROPHILS % 9 % (0-10); PLATELET MORPHOLOGY COMMENT NORMAL (NORMAL)
[2021-08-16] MEDS: DEMEROL INJ IVP PRN ×3 (06:29→19:46)
[2021-08-16] MEDS ORDERED: LANOXIN INJ ONE (06:43)
[2021-08-16] MEDS ORDERED: LANOXIN INJ IVP ONE (06:45)
[2021-08-16] MEDS ORDERED: CARDIZEM INJ 125 MG VIAL 125 MG in NS 100 ML IV 100 ML IV PRN (07:30)
[2021-08-16] MEDS ORDERED: NS 100 ML IV 100 ML ONE (07:42)
[2021-08-16] MEDS ORDERED: CARDIZEM INJ 125 MG VIAL ONE (07:42)
[2021-08-16] MEDS ORDERED: LANOXIN INJ IVP SCH (09:00)
[2021-08-16] MEDS: LEVAQUIN PREMIX IV 500 MG 500 MG/100 ML BAG IV SCH (09:16)
[2021-08-16] MEDS: ELIQUIS PO SCH ×2 (09:16→21:03)
[2021-08-16 10:20] LABS: BILIRUBIN,URINE NEGATIVE (NEGATIVE); BLOOD/HEMOGLOBIN,URINE NEGATIVE (NEGATIVE); GLUCOSE, URINE NEGATIVE (NEGATIVE); KETONES,URINE NEGATIVE (NEGATIVE); LEUKOCYTE ESTERASE ,URINE NEGATIVE (NEGATIVE); NITRITES,URINE NEGATIVE (NEGATIVE); PROTEIN,URINE NEGATIVE (NEGATIVE); UROBILINOGEN,URINE NORMAL (NORMAL)
[2021-08-16 10:22] LABS: APPEARANCE,URINE CLEAR (CLEAR); COLOR,URINE STRAW (YELLOW)
[2021-08-16] MEDS: TYLENOL 325 MG TAB PO PRN (17:48)
[2021-08-16] MEDS: COLACE CAP 100 MG PO SCH (21:03)
[2021-08-17] MEDS: DEMEROL INJ IVP PRN (02:09)
[2021-08-17] MEDS: TYLENOL 325 MG TAB PO PRN (04:05)
[2021-08-17] MEDS: NS 1,000 ML IV 1,000 ML IV SCH ×2 (05:16→10:32)
[2021-08-17] MEDS: FORTAZ or TAZICEF VIAL INJ 1 G in NS 100 ML IV + SPIKE MINIBAG* 100 ML IV SCH (05:16)
[2021-08-17 05:44] LABS: BASOPHILS % (AUTO) 0.8 % (0.2-1.0); EOSINOPHILS % (AUTO) 0.5 % (0.9-2.9); HEMATOCRIT 39.6 % (42.0-54.0); HEMOGLOBIN 13.5 g/dL (13.5-18.0); LYMPHOCYTES # (AUTO) 0.9 X10^3/uL (1.3-2.9); LYMPHOCYTES % (AUTO) 21.6 % (21.0-51.0); MEAN CORPUSCULAR HEMOGLOBIN 28.8 pg (27.0-34.0); MEAN CORPUSCULAR HGB CONC 34.1 g/dL (33.0-35.0); MEAN CORPUSCULAR VOLUME 84.6 fL (80.0-100.0); MEAN PLATELET VOLUME 8.3 fL (7.4-11.0); MONOCYTES # (AUTO) 0.5 x10^3/uL (0.3-0.8); MONOCYTES % (AUTO) 10.9 % (0.0-13.0); NEUTROPHILS # (AUTO) 2.8 x10^3/uL (2.2-4.8); NEUTROPHILS % (AUTO) 66.2 % (42.0-75.0); PLATELET COUNT 117 X10^3/uL (150.0-450.0); RED BLOOD COUNT 4.68 X10^6/uL (4.7-6.0); RED CELL DISTRIBUTION WIDTH 14.2 % (11.6-16.5); WHITE BLOOD COUNT 4.2 X10^3/uL (3.6-10.0)
--- NOTE | 2021-08-17 05:47 | RAD ---
PROCEDURE: Chest X-ray 1 View .HISTORY: Dyspnea.TECHNIQUE: AP view .COMPARISON: 08/16/2021.TECHNICAL QUALITY: Satisfactory .FINDINGS:Normal size heart .Mediastinum and hilar regions show no masses or lymphadenopathy .Normal central vascularity .No pulmonary consolidation, masses, pleural fluid, or pneumothorax. Unchanged discoid atelectasis left base.No acute bony abnormality .IMPRESSION:Stable chest.Electronically signed by: Rao León (Aug 17, 2021 05:45:42)
[2021-08-17 05:50] LABS: ALANINE AMINOTRANSFERASE 75 Units/L (12-78); ALBUMIN 2.6 g/dL (3.4-5.0); ALKALINE PHOSPHATASE 46 Units/L (46-116); ASPARTATE AMINO TRANSFERASE 104 Units/L (15-37); BLOOD UREA NITROGEN 8 mg/dL (7-18); CALCIUM 8.8 mg/dL (8.5-10.1); CARBON DIOXIDE 25.8 mmol/L (21-32); CHLORIDE 101 mmol/L (98-107); COR CA(FOR HYPOALB) 9.9 mg/dL (8.5-10.1); SODIUM 136 mmol/L (136-145); TOTAL PROTEIN 6.1 g/dL (6.4-8.2); eGFR NON BLACK RACES > 60 (>60)
[2021-08-17 06:01] LABS: BAND NEUTROPHILS % 4 % (0-10); PLATELET MORPHOLOGY COMMENT NORMAL (NORMAL)
--- NOTE | 2021-08-17 08:46 | PCM.PROG ---
Progress Note - Progress Note for Day of Date of Exam: 08/16/21 - Subjective Subjective: WAS ADMITTED FOR TREATMENT OF PULMONARY EMBOLISM, PNEUMONIA, HYPOXIA, AND LEUKOPENIA. TODAY, HE IS ALERT AND ORIENTED, SITTING UP IN BED ON MORNING ROUNDS. HE CONTINUES WITH COMPLAINTS OF SHORTNESS OF BREATH, COUGH, AND GENERALIZED WEAKNESS. HE CONTINUES TO HAVE FEVER AT NIGHT. PATIENT ALSO HAD INCREASED HEART RATE OF UP TO 170 BPM EARLY THIS MORNING. HE WAS GIVEN A DOSE OF DIGOXIN, HOWEVER, HEART RATE CONTINUED TO BE ELEVATED. HE WAS THEN STARTED ON A CARDIZEM DRIP. ON EXAMINATION THIS MORNING, HEART RATE CONTINUES TO BE ELEVATED. FIRST COOK SHOWS A-FIB. BILATERAL LUNGS ARE NOTED WITH DIMINISHED LUNG SOUNDS THROUGHOUT. ABDOMEN IS ROUND, SOFT, AND NON-TENDER WITH NORMAL BOWEL SOUNDS NOTED IN ALL QUADRANTS. HIS VITALS THIS MORNING ARE: 99.3-128-28-96%-124/70. LABS WERE OBTAINED. HCT 21.5, PLT COUNT 102, AST 104, TOTAL PROTEIN 6.1, ALBUMIN 2.6. BLOOD CULTURES ARE PENDING. A CHEST XRAY WAS OBTAINED AND REVEALED: Normal size heart. Mediastinum and hilar regions show no masses or lymphadenopathy. Tortuous aorta. Normal central vascularity. No pulmonary consolidation, masses, pleural fluid, or pneumothorax. Continued discoid atelectasis left base. No acute bony abnormality. HE IS CURRENTLY RECEIVING: NORMAL SALINE AT 80 ML/HR, ELIQUIS 10MG PO BID, CARDIZEM DRIP, FORTAZ 1G IV Q8H, LEVAQUIN 500MG IV DAILY, ALBUTEROL NEB TX, AND THE POTASSIUM AND MAGNESIUM PROTOCOLS. WE WILL CONTINUE WITH CURRENT PLAN OF CARE TODAY. OTHERWISE, WE PLAN TO FOLLOW UP WITH AM LABS AND CONTINUE TO MONITOR. TIME SPENT ON CLINICAL ASSESSMENT, REVIEWING LABS AND IMAGING, DECISION MAKING, AND DOCUMENTATION GREATER THAN 45 MINUTES. - Past Medical Family Social History Past Med/Fam/Surg Hx: No changes since H&P Allergies: Allergies erythromycin base Allergy (Verified 08/13/21 10:13) oxycodone [From Percocet] Allergy (Verified 08/13/21 10:13) Penicillins Allergy (Verified 08/13/21 10:13) terazosin Allergy (Verified 08/13/21 10:13) - Review of Systems ROS: No change since H&P - Vital Signs and I&O's Vital Signs: Temperature 101.1 F Pulse Rate [Left Brachial] 72 Pulse Rate 77 Respiratory Rate 23 Blood Pressure [Left Arm] 158/82 Blood Pressure 147/74 O2 Sat by Pulse Oximetry 95 Intake and Output: Intake & Output 08/14/21 08/15/21 08/16/21 08/17/21 11:59 11:59 11:59 11:59 Intake Total 2085 / 2085 3458 / 3458 2800 / 2800 4323 / 4323 Output Total 200 / 200 1500 / 1500 2049 4100 / 4100 Balance 1886 / 1881957 / 1957 750 / 750 223 / 223 - Physical Exam Oriented: Normal Eyes: Normal Ear: Normal Nose: Normal Throat: Normal Respiratory: Generalized, Diminished Cardiovascular: Normal : Normal Auscultation: Bowel Sounds: Normal Tenderness: Normal Skin: Normal Musculoskeletal: Normal Psychiatric: Normal Mood Description: Calm Affect: Normal Speech Pattern: Clear, Appropriate - Laboratory and Diagnostics Result Diagrams: 08/17/21 05:25 08/17/21 05:25 Labs: 08/13/21 23:32 Blood Blood Culture - Preliminary 08/13/21 23:28 Blood Blood Culture - Preliminary 08/13/21 15:23 Blood Blood Culture - Preliminary 08/13/21 15:18 Blood Blood Culture - Preliminary Laboratory WBC 4.2 X10^3/uL (3.6-10.0) 08/17/21 05:25 RBC 4.68 X10^6/uL (4.7-6.0) L 08/17/21 05:25 Hgb 13.5 g/dL (13.5-18.0) 08/17/21 05:25 Hct 39.6 % (42.0-54.0) L 08/17/21 05:25 MCV 84.6 fL (80.0-100.0) 08/17/21 05:25 MCH 28.8 pg (27.0-34.0) 08/17/21 05:25 MCHC 34.1 g/dL (33.0-35.0) 08/17/21 05:25 RDW 14.2 % (11.6-16.5) 08/17/21 05:25 Plt Count 117 X10^3/uL (150.0-450.0) L 08/17/21 05:25 Plt Count Comment Decreased (ADEQUATE) 08/17/21 05:25 MPV 8.3 fL (7.4-11.0) 08/17/21 05:25 Neut % (Auto) 66.2 % (42.0-75.0) 08/17/21 05:25 Lymph % (Auto) 21.6 % (21.0-51.0) 08/17/21 05:25 [place] % (Auto) 10.9 % (0.0-13.0) 08/17/21 05:25 Eos % (Auto) 0.5 % (0.9-2.9) L 08/17/21 05:25 Baso % (Auto) 0.8 % (0.2-1.0) 08/17/21 05:25 Neut # (Auto) 2.8 x10^3/uL (2.2-4.8) 08/17/21 05:25 Lymph # (Auto) 0.9 X10^3/uL (1.3-2.9) L 08/17/21 05:25 [place] # (Auto) 0.5 x10^3/uL (0.3-0.8) 08/17/21 05:25 Eos # (Auto) 0.0 x10^3/uL (0.0-0.2) 08/17/21 05:25 Baso # (Auto) 0.0 X10^3/uL (0.0-0.1) 08/17/21 05:25 Absolute Nucleated RBC 0.2 /100WBC 08/17/21 05:25 Total Counted 100 08/17/21 05:25 Neutrophils % (Manual) 63 % (39-76) 08/17/21 05:25 Band Neutrophils % 4 % (0-10) 08/17/21 05:25 Lymphocytes % (Manual) 21 % (13-43) 08/17/21 05:25 Monocytes % (Manual) 11 % (4-9) H 08/17/21 05:25 Eosinophils % (Manual) 1 % (0-6) 08/17/21 05:25 Basophils % (Manual) 2 % (0-1) H 08/14/21 05:27 Plt Morphology Comment Normal (NORMAL) 08/17/21 05:25 RBC Morphology Normal (NORMAL) 08/17/21 05:25 PT 14.3 SECONDS (11.8-14.3) 08/13/21 11:10 INR Target Range - 08/13/21 11:10 INR 1.17 (0.8-1.3) 08/13/21 11:10 APTT 43.8 SECONDS (22.9-36.5) H 08/16/21 05:13 PTT Comment - 08/16/21 05:13 D-Dimer 5.89 ug/ml (0.0-0.57) H* 08/13/21 11:19 Sample Site Rr 08/13/21 11:10 ABG pH 7.430 (7.35-7.45) 08/13/21 11:10 ABG pCO2 38.0 mmHg (35.0-45.0) 08/13/21 11:10 ABG pO2 72.0 mmHg (80.0-100.0) L 08/13/21 11:10 ABG HCO3 25.2 mmol/L (22-26) 08/13/21 11:10 ABG O2 Saturation 95.0 % (90-100) 08/13/21 11:10 ABG Base Excess 1.0 mmol/L (-2.0-2.0) 08/13/21 11:10 Ernie Test Pos 08/13/21 11:10 A-a Gradient 30.0 mmHg 08/13/21 11:10 FiO2 21.0 08/13/21 11:10 Blood Gas Comments Pt camron well cdn 08/13/21 11:10 Sodium 136 mmol/L (136-145) 08/17/21 05:25 Corrected Sodium TNP 08/17/21 05:25 Potassium 3.7 mmol/L (3.5-5.1) 08/17/21 05:25 Chloride 101 mmol/L (98-107) 08/17/21 05:25 Carbon Dioxide 25.8 mmol/L (21-32) 08/17/21 05:25 BUN 8 mg/dL (7-18) 08/17/21 05:25 Creatinine 0.90 mg/dL (0.70-1.30) 08/17/21 05:25 Est GFR (MDRD) Af Amer > 60 (>60) 08/17/21 05:25 Est GFR (MDRD) Non-Af > 60 (>60) 08/17/21 05:25 Glucose 99 mg/dL (65-99) 08/17/21 05:25 Calcium 8.8 mg/dL (8.5-10.1) 08/17/21 05:25 Corrected Calcium 9.9 mg/dL (8.5-10.1) 08/17/21 05:25 Magnesium 2.3 mg/dL (1.7-2.9) 08/14/21 05:27 Total Bilirubin 0.50 mg/dL (0.2-1.0) 08/17/21 05:25 AST 104 Units/L (15-37) H 08/17/21 05:25 ALT 75 Units/L (12-78) 08/17/21 05:25 Alkaline Phosphatase 46 Units/L (46-116) 08/17/21 05:25 Total Protein 6.1 g/dL (6.4-8.2) L 08/17/21 05:25 Albumin 2.6 g/dL (3.4-5.0) L 08/17/21 05:25 Globulin 3.5 g/dL (2.5-4.5) 08/17/21 05:25 Albumin/Globulin Ratio 0.7 Ratio (1.1-2.1) L 08/17/21 05:25 Specimen Type Clean catch urine 08/16/21 10:00 Urine Color Straw (YELLOW) 08/16/21 10:00 Urine Appearance Clear (CLEAR) 08/16/21 10:00 Urine pH 7.0 (5.0 - 8.0) 08/16/21 10:00 Ur Specific [place] 1.010 (1.000-1.030) 08/16/21 10:00 Urine Protein Negative (NEGATIVE) 08/16/21 10:00 Urine Glucose (UA) Negative (NEGATIVE) 08/16/21 10:00 Urine Ketones Negative (NEGATIVE) 08/16/21 10:00 Urine Occult Blood Negative (NEGATIVE) 08/16/21 10:00 Urine Nitrite Negative (NEGATIVE) 08/16/21 10:00 Urine Bilirubin Negative (NEGATIVE) 08/16/21 10:00 Urine Urobilinogen Normal (NORMAL) 08/16/21 10:00 Ur Leukocyte Esterase Negative (NEGATIVE) 08/16/21 10:00 Influenza Type A Ag Negative-presumptive (NEGATIVE) 08/13/21 10:31 Influenza Type B Ag Negative-presumptive (NEGATIVE) 08/13/21 10:31 SARS CoV-2 RNA Rapid AMOS Negative (NEGATIVE) 08/13/21 10:31 - Plan (1) Pulmonary embolism Status: Acute Qualifiers: Pulmonary embolism type: unspecified Chronicity: acute Acute cor pulmonale presence: unspecified Qualified Code(s): I26.99 - Other pulmonary embolism without acute cor pulmonale Plan: SUPPLEMENTAL OXYGEN, NORMAL SALINE AT 80 ML/HR, CARDIZEM DRIP, ELIQUIS 10MG PO BID, FORTAZ 1G IV Q8H, LEVAQUIN 500MG IV DAILY, ALBUTEROL NEB TX, AND THE POTASSIUM AND MAGNESIUM PROTOCOLS. (2) Bronchopneumonia Status: Acute (3) Hypoxia Status: Acute (4) Leukopenia Status: Acute Qualifiers: Leukopenia type: lymphocytopenia Qualified Code(s): D72.810 - Lymphocytopenia
[2021-08-17] MEDS: ELIQUIS PO SCH (09:06)
[2021-08-17] MEDS: LEVAQUIN PREMIX IV 500 MG 500 MG/100 ML BAG IV SCH (09:06)
[2021-08-17 10:08] VITALS: BP 133/67
[2021-08-22] MEDS ORDERED: ELIQUIS PO SCH (21:00)
== END 2021-08-17 10:54 | disposition home or self-care (01) | DRG 175 ==
LOC: ER 10:07 → ICU 14:51
PROVIDERS: ADMIT Internal Medicine; ATTEND Internal Medicine
DX: Z20.822 Contact with and (suspected) exposure to COVID-19; I48.91 Unspecified atrial fibrillation; Z85.118 Personal history of other malignant neoplasm of bronchus and lung; R59.0 Localized enlarged lymph nodes; J18.0 Bronchopneumonia, unspecified organism; D72.810 Lymphocytopenia; J44.9 Chronic obstructive pulmonary disease, unspecified; R06.02 Shortness of breath; I26.99 Other pulmonary embolism without acute cor pulmonale; Z90.2 Acquired absence of lung [part of]